=== PATIENT | male | born 1955 | race Caucasian/White ===

== ENCOUNTER 2018-04-04 06:49 | Observation (INO) | payer OTHER ==
[~2018-04-04 06:49] MED LIST: CEFAZOLIN 2 GM/50 ML (PMX) 50 ML IVPB
[2018-04-04] MEDS ORDERED: CEFAZOLIN 1 GM INJ (07:00)
[2018-04-04] MEDS ORDERED: SUGAMMADEX SODIUM 200 MG/2 ML VIAL IV (07:00)
[2018-04-04] MEDS ORDERED: ROCURONIUM 50 MG INJ (07:00)
[2018-04-04] MEDS ORDERED: SUCCINYLCHOLINE CHLORIDE 100 MG/5 ML SYG IV (07:00)
[2018-04-04] MEDS ORDERED: METOCLOPRAMIDE 10 MG INJ (07:00)
[2018-04-04] MEDS: LACTATED RINGER'S 1,000 ML IV* (07:11)
[2018-04-04 07:48] LABS: INR 0.82; PROTIME 11.4 Sec (11.9-14.9); PT RATIO 0.9
[2018-04-04 07:49] LABS: PARTIAL THROMBOPLASTIN TIME 28.2 Sec (25.0-35.0)
[2018-04-04] MEDS ORDERED: MIDAZOLAM 1 MG/ML 2 ML INJ (08:05)
[2018-04-04] MEDS ORDERED: FENTAnyl 50 MCG/ML VIAL ×2 (08:05→08:36)
[2018-04-04] MEDS ORDERED: KETAMINE (100 MG/ML) 5 ML VIAL (08:13)
[2018-04-04] MEDS ORDERED: PROPOFOL 20 ML (08:35)
[2018-04-04] MEDS ORDERED: LIDOCAINE 2% (SDV) 5 ML INJ (08:35)
[2018-04-04] MEDS: BUPIVACAINE 0.25%/EPI (SDV) 30 ML INJ (08:37)
[2018-04-04] MEDS: GELATIN SIZE 100 SPONGE (08:37)
[2018-04-04] MEDS: THROMBIN 5000 UNIT VIAL (08:37)
[2018-04-04] MEDS: POLYMYXIN/BACITRACIN 1L IRRIG (08:37)
[2018-04-04] MEDS ORDERED: METOPROLOL 5 MG INJ (08:56)
[2018-04-04] MEDS ORDERED: DEXAMETHASONE 4 MG/ML 1 ML INJ (08:56)
[2018-04-04] MEDS ORDERED: ONDANSETRON 4 MG INJ (08:56)
[2018-04-04] MEDS ORDERED: ACETAMINOPHEN 1000MG/100ML IV 100 ML (08:56)
[2018-04-04] MEDS ORDERED: BETAMET NA PHOS/AC(6 MG/ML) 5ML INJ (09:58)
[2018-04-04] MEDS ORDERED: ONDANSETRON 4 MG INJ IV (11:00)
[2018-04-04] MEDS ORDERED: HYDROmorphONE 1 MG/5 ML IV SYRINGE IV ×2 (11:00)
[2018-04-04] MEDS ORDERED: DIPHENHYDRAMINE 50 MG INJ IV (11:00)
[2018-04-04] MEDS ORDERED: MEPERIDINE 25 MG INJ IV (11:00)
[2018-04-04] MEDS ORDERED: NALOXONE (0.4 MG/ML) INJ IV (11:00)
[2018-04-04] MEDS ORDERED: IPRATROPIUM (NEB) 0.5 MG/2.5 ML AMP HHN (11:00)
[2018-04-04] MEDS ORDERED: FENTAnyl 50 MCG/ML VIAL IV ×2 (11:00)
[2018-04-04] MEDS ORDERED: PROCHLORPERAZINE 10 MG TAB PO (11:00)
[2018-04-04] MEDS ORDERED: HYDROCODONE/APAP (5/325) TAB PO (11:00)
[2018-04-04] MEDS ORDERED: NACL 0.9% 3 ML SYG IV (11:00)
[2018-04-04] MEDS: HYDROmorphONE 1 MG/5 ML IV SYRINGE IV (11:37)
[2018-04-04] MEDS: HYDROmorphONE 0.5 MG/0.5 ML SYG IV ×3 (13:05→21:08)
[2018-04-04] MEDS: HYDROCODONE/APAP (5/325) TAB PO ×2 (14:17→18:07)
[2018-04-04] MEDS: CEFAZOLIN 1 GM/50 ML (PMX) 50 ML IVPB ×2 (14:22→20:47)
[2018-04-04] MEDS: HYDROmorphONE 1 MG/ML SYG IV (15:13)
[2018-04-04] MEDS: CLINDAMYCIN 900 MG/D5W (PMX) 50 ML IVPB (19:30)
[2018-04-04] MEDS: MAGNESIUM HYDROXIDE 30ML CUP PO (22:01)
[2018-04-04] MEDS: POLYETHYLENE GLYCOL 17 GM PACKET PO (22:01)
[2018-04-04] MEDS: ONDANSETRON 4 MG INJ IV (22:01)
[2018-04-05] MEDS: HYDROmorphONE 0.5 MG/0.5 ML SYG IV ×3 (01:14→08:35)
[2018-04-05] MEDS: CEFAZOLIN 1 GM/50 ML (PMX) 50 ML IVPB ×2 (01:18→07:51)
[2018-04-05] MEDS: ONDANSETRON 4 MG INJ IV (05:55)
[2018-04-05] MEDS ORDERED: OXYCODONE/ACETAMINOPHEN (5/325) TAB PO (09:00)
[2018-04-05] MEDS ORDERED: MAGNESIUM CITRATE 300 ML BTL PO (09:00)
[2018-04-05] MEDS: OXYCODONE/ACETAMINOPHEN (5/325) TAB PO ×2 (10:51→11:20)
[2018-04-05] MEDS: NA PHOSPHATE/BIPHOS 133 ML ENEMA PR (10:51)
[2018-04-05] MEDS ORDERED: METHOCARBAMOL 750 MG TAB PO (14:30)
[2018-04-05] MEDS: METHOCARBAMOL 750 MG TAB PO (14:37)
== END 2018-04-05 15:45 | disposition home or self-care (01) ==
LOC: SDS 06:49 → REC 10:37 → MS1 12:34
DX: M48.061 Spinal stenosis, lumbar region without neurogenic claudication (principal); M71.38 Other bursal cyst, other site; M54.16 Radiculopathy, lumbar region; K59.03 Drug induced constipation; F41.9 Anxiety disorder, unspecified; M19.90 Unspecified osteoarthritis, unspecified site; E78.5 Hyperlipidemia, unspecified; G62.9 Polyneuropathy, unspecified; K21.9 Gastro-esophageal reflux disease without esophagitis
CPT/HCPCS: 63267; 72100; 85610; 85730; 97116; 97161